=== PATIENT | female | born 1985 | race Caucasian/White ===

== ENCOUNTER → 2019-10-02 | Outpatient (CLI) | payer OTHER | LOC: RAD 17:18 | PROVIDERS: ATTEND Nurse Practitioner | DX: M54.6 Pain in thoracic spine (principal) ==

== ENCOUNTER → 2020-08-05 | Outpatient (CLI) | payer OTHER, MEDICAID ==
--- NOTE | 2020-08-05 13:56 | Diagnostic Imaging Report ---
EXAMINATION: Right foot at 01:09 p.m. INDICATION: Stepped on nail. FINDINGS: Three views were obtained. There are no prior studies available for comparison. There is no fracture, dislocation, or acute bony abnormality evident. The lateral view fails to show any sign of a radiopaque foreign body in the soft tissues along the plantar aspect of the foot. The Lisfranc joint is well maintained. There is no sign of a calcaneal spur. IMPRESSION: 1. There is no evidence for an acute bony abnormality. 2. There is no sign of a radiopaque foreign body. Dictated by: Dictated on workstation # [id number]
== END ==
LOC: RAD FS 12:48
PROVIDERS: ATTEND Family Medicine
DX: M79.671 Pain in right foot (principal); W22.8XXA Striking against or struck by other objects, initial encounter
CPT/HCPCS: 73630

== ENCOUNTER → 2020-08-05 | Outpatient (CLI) | payer OTHER, MEDICAID ==
[2020-08-05 13:25] LABS: HEMATOCRIT 37 % (35-52); HEMOGLOBIN 12.8 G/DL (11.5-16.0); MEAN CORPUSCULAR HEMOGLOBIN 30 PG (25-34); MEAN CORPUSCULAR HGB CONC 34 G/DL (32-36); MEAN CORPUSCULAR VOLUME 88 FL (80-99); PLATELET COUNT 256 10^3/uL (130-400); WHITE BLOOD COUNT 7.8 10^3/uL (4.3-11.0)
[2020-08-05 13:26] LABS: BASOPHILS % (AUTO) 0 % (0-10); EOSINOPHILS # (AUTO) 0.2 10^3/uL (0.0-0.3); EOSINOPHILS % (AUTO) 2 % (0-10); LYMPHOCYTES # (AUTO) 1.8 X 10^3 (1.0-4.0); LYMPHOCYTES % (AUTO) 24 % (12-44); MEAN PLATELET VOLUME 9.5 FL (7.4-10.4); MONOCYTES # (AUTO) 0.4 X 10^3 (0.0-1.0); MONOCYTES % (AUTO) 5 % (0-12); NEUTROPHILS # (AUTO) 5.3 X 10^3 (1.8-7.8); NEUTROPHILS % (AUTO) 68 % (42-75)
== END ==
LOC: LAB FS 12:43
PROVIDERS: ATTEND Family Medicine
DX: Z34.90 Encounter for supervision of normal pregnancy, unspecified, unspecified trimester (principal)
CPT/HCPCS: 36415; 80055; 86703; 86762; 87088

== ENCOUNTER → 2020-10-18 | Outpatient (CLI) | payer OTHER, MEDICAID | LOC: LAB FS 15:20 | PROVIDERS: ATTEND Family Medicine | DX: Z53.9 Procedure and treatment not carried out, unspecified reason (principal) | CPT/HCPCS: 36415; 82950 ==

== ENCOUNTER → 2020-10-21 | Outpatient (CLI) | payer OTHER, MEDICAID ==
[2020-10-21 09:01] LABS: HEMOGLOBIN 12.7 G/DL (11.5-16.0); MEAN PLATELET VOLUME 9.3 FL (7.4-10.4); WHITE BLOOD COUNT 7.4 10^3/uL (4.3-11.0)
== END ==
LOC: LAB FS 08:25
PROVIDERS: ATTEND Family Medicine
DX: O99.810 Abnormal glucose complicating pregnancy (principal); Z3A.00 Weeks of gestation of pregnancy not specified
CPT/HCPCS: 36415; 82951; 82952; 85027

== ENCOUNTER 2022-03-04 18:05 | Day surgery (SDC) | payer MEDICAID, OTHER ==
[~2022-03-04] VITALS: Ht 170.2 cm; Wt 82.5 kg
[2022-03-04] VITALS (7 sets, daily range): BP systolic 91–102; BP diastolic 42–58
[2022-03-04] MEDS ORDERED: NS IV 1000 ML 1,000 ML IV SCH ×2 (18:15→21:30)
--- NOTE | 2022-03-04 18:17 | ED GU-Female ---
General Stated Complaint: VAG BLEEDING Source: patient History of Present Illness Date Seen by Provider: Mar 04, 2022 Time Seen by Provider: 18:09 Initial Comments PT ARRIVES VIA EMS CALLED AMBULANCE THEN STARTED DRIVING HERE AND MET THE AMBULANCE, WHO BROUGHT HER TO ER PT WITH LMP OF 12/13/21 PT BEGAN SPOTTING 8 DAYS AGO PT HAD AN ULTRASOUND 4 WEEKS AGO ( SEES OB IN [place], [place]) --NO HEARTBEAT, AND GESTATIONAL SAC OF ONLY 6 WEEKS IN SIZE, INSTEAD OF 8 WEEKS BY LMP. SAW HER DR IN [place] EARLIER THIS WEEK AND HAD ANOTHER ULTRASOUND AND IT WAS "INCONCLUSIVE" WAS ALL SHE WAS TOLD--DID NOT TELL HER SIZE OF GESTATIONAL SAC OR IF ONE WAS PRESENT. 20 MINUTES PRIOR TO ARRIVAL, SHE HAD A SUDDEN GUSH OF BLOOD AND IS NOW STARTING TO HAVE CRAMPING --"CONTRACTIONS" PER PT. HAS NOT BEEN HAVING PAIN PRIOR TO THAT. HAS USED 5 PADS THROUGHOUT THE DAY, BUT NOW HAS A LARGE TOWEL IN PLACE, WITH A LARGE AMOUNT OF BLOOD ON THE TOWEL WITH CLOTS. NO NAUSEA/VOMITING NO PROBLEMS URINATING OR PAIN / BURNING ON URINATION PT STATES LAST WEEKEND SHE HAD FEVER UP TO 101 ON Sunday08/26/22, SUNDAY, SUNDAY, BUT NO FEVER SINCE SUNDAY AND IS NOW SUNDAY BP 101/62, HR 72 BY EMS. PT IS G10, P8, AB 1--ALL , DID HAVE BLEEDING WITH LAST 2 PREGNANCIES. MISCARRIAGE DID NOT REQUIRE D&C--WAS ONLY ABOUT 6-8 WEEKS GESTATION AND DID NOT HAVE SIGNIFICANT BLEEDING OR PAIN. PT HAS A 14 MONTH OLD CHILD AT HOME, WAS UNTIL 4 WEEKS AGO. NO CONTROL PCP: DR. CARPENTER IN [place] Allergies and Home Medications Allergies Coded Allergies: codeine (Verified Allergy, Mild, NAUSEA, 03/04/22) Patient Home Medication List Home Medication List Reviewed: Yes Acetaminophen (Tylenol Extra Strength) 500 Mg Tablet, 1,000 MG PO Q8H PRN for PAIN-MODERATE (5-7) Prescribed by: Jayna Vallejo on 03/04/222238 Docusate Sodium (Colace) 100 Mg Capsule, 100 MG PO BID Prescribed by: Jayna Vallejo on 03/04/222237 Ibuprofen (Ibuprofen) 600 Mg Tablet, 600 MG PO Q6H Prescribed by: Jayna Vallejo on 03/04/222237 Ondansetron (Ondansetron Odt) 4 Mg Tab.rapdis, 4 MG PO Q6H PRN for NAUSEA/VOMITING-1ST LINE Prescribed by: Jayna Vallejo on 03/04/222237 Review of Systems Review of Systems Constitutional: see HPI Respiratory: no symptoms reported; No short of breath Cardiovascular: no symptoms reported; No chest pain Gastrointestinal: see HPI Genitourinary: see HPI Musculoskeletal: no symptoms reported; No back pain Skin: no symptoms reported Psychiatric/Neurological: No Symptoms Reported Endocrine: No Symptoms Reported Hematologic/Lymphatic: No Symptoms Reported Past Nzoxfkh-Vzrxdc-Nihwxr Hx Patient Social History Tobacco Use?: No Substance use?: No Alcohol Use?: No Past Medical History Surgeries: Yes Gallbladder Respiratory: No Cardiac: No Neurological: No : Yes Hx : 10 (ALL NORMAL VAGINAL DELIVERIES) Hx Para: 8 Hx Total # of Abortions (Sp): 2 (CURRENT PROBLEM IS SECOND MISCARRIAGE.) Reproductive Disorders: No Genitourinary: No Gastrointestinal: Yes (S/P CHOLECYSTECTOMY) Gall Bladder Disease Musculoskeletal: No Endocrine: No HEENT: No Cancer: No Psychosocial: No Integumentary: No Blood Disorders: No Physical Exam Vital Signs Vital Signs - First Documented 03/04/22 18:08 Temp 36.6 Pulse 69 Resp 20 B/P (MAP) 86/52 (63) Pulse Ox 100 O2 Delivery Room Air Capillary Refill : Height, Weight, BMI Height: '" Weight: lbs. oz. kg; BMI Method: General Appearance: WD/WN, other (LOOKS UNCOMFORTABLE) Cardiovascular: regular rate, rhythm, no murmur Respiratory: normal breath sounds Gastrointestinal: soft, tenderness (SUPRAPUBIC) Pelvic: other (ACTIVE BLEEDING WITH VERY LARGE CLOTS--PALM SIZED CLOTS--UNABLE TO VISUALIZE CERVIX DUE TO AMOUNT OF BLEEDING) Extremities: no pedal edema Neurologic/Psychiatric: no motor/sensory deficits, alert, oriented x 3 Skin: normal color, warm/dry Progress/Results/Core Measures Suspected Sepsis SIRS Temperature: Pulse: Respiratory Rate: Laboratory Tests 03/04/22 18:19: White Blood Count 9.0 03/04/22 20:18: White Blood Count 13.0H Blood Pressure / Mean: Laboratory Tests 03/04/22 18:19: Creatinine 0.62, INR Comment 1.3, Platelet Count 263 03/04/22 20:18: Platelet Count 218 Results/Orders Lab Results Laboratory Tests Test 03/04/22 18:19 03/04/22 20:18 Range/Units White Blood Count 9.0 13.0 H 4.3-11.0 10^3/uL Red Blood Count 4.35 3.67 L 3.80-5.11 10^6/uL Hemoglobin 13.0 11.1 L 11.5-16.0 g/dL Hematocrit 38 33 L 35-52 % Mean Corpuscular Volume 88 89 80-99 fL Mean Corpuscular Hemoglobin 30 30 25-34 pg Mean Corpuscular Hemoglobin Concent 34 34 32-36 g/dL Red Cell Distribution Width 12.5 12.6 10.0-14.5 % Platelet Count 263 218 130-400 10^3/uL Mean Platelet Volume 9.2 9.3 9.0-12.2 fL Immature Granulocyte % (Auto) 0 % Neutrophils (%) (Auto) 55 42-75 % Lymphocytes (%) (Auto) 38 12-44 % Monocytes (%) (Auto) 5 0-12 % Eosinophils (%) (Auto) 1 0-10 % Basophils (%) (Auto) 0 0-10 % Neutrophils # (Auto) 4.9 1.8-7.8 10^3/uL Lymphocytes # (Auto) 3.4 1.0-4.0 10^3/uL Monocytes # (Auto) 0.4 0.0-1.0 10^3/uL Eosinophils # (Auto) 0.1 0.0-0.3 10^3/uL Basophils # (Auto) 0.0 0.0-0.1 10^3/uL Immature Granulocyte # (Auto) 0.0 0.0-0.1 10^3/uL Prothrombin Time 16.8 H 12.2-14.7 SEC INR Comment 1.3 0.8-1.4 Activated Partial Thromboplast Time 34 24-35 SEC Sodium Level 138 135-145 MMOL/L Potassium Level 3.5 L 3.6-5.0 MMOL/L Chloride Level 105 98-107 MMOL/L Carbon Dioxide Level 19 L 21-32 MMOL/L Anion Gap 14 5-14 MMOL/L Blood Urea Nitrogen 9 7-18 MG/DL Creatinine 0.62 0.60-1.30 MG/DL Estimat Glomerular Filtration Rate 118 BUN/Creatinine Ratio 15 Glucose Level 100 70-105 MG/DL Calcium Level 9.1 8.5-10.1 MG/DL Human Chorionic Gonadotropin, Quant 2078 H <5 MIU/ML My Orders Orders - DENI MORRIS DO Ed Iv/Invasive Line Start (03/04/22 18:15) Monitor-Rhythm Ecg Trace Only (03/04/22 18:15) Us Ob Single Fetus<14 [id number] (03/04/22 18:15) Basic Metabolic Panel (03/04/22 18:15) Cbc With Automated Diff (03/04/22 18:15) Hcg,Quantitative (03/04/22 18:15) Protime With Inr (03/04/22 18:15) Partial Thromboplastin Time (03/04/22 18:15) Ed Iv/Invasive Line Start (03/04/22 18:15) Ns Iv 1000 Ml (Sodium Chloride 0.9%) (03/04/22 18:15) Cbc No Diff (03/04/22 20:17) Type And Screen (03/04/22 20:17) Ed Iv/Invasive Line Start (03/04/22 20:17) Lactated Ringers (Lr 1000 Ml Iv Solution (03/04/22 20:30) Fentanyl Inj (Sublimaze Injection) (03/04/22 20:43) Ondansetron Injection (Zofran Injectio (03/04/22 21:00) Ondansetron Injection (Zofran Injectio (03/04/22 20:55) Ed Iv/Invasive Line Start (03/04/22 21:18) Ns Iv 1000 Ml (Sodium Chloride 0.9%) (03/04/22 21:30) Red Cells Leukocytes Reduced (03/04/22 21:18) Medications Given in ED Current Medications Medications Dose Ordered Sig/Mono Route Start Time Stop Time Status Last Admin Dose Admin Lactated Ringer's 1,000 ml @ 0 mls/hr Q0M ONCE IV 03/04/22 20:30 03/04/22 20:31 DC 03/04/22 20:33 0 MLS/HR Ondansetron HCl 8 mg ONCE ONCE IVP 03/04/22 21:00 03/04/22 21:01 DC 03/04/22 20:59 8 MG Vital Signs/I&O 03/04/22 03/04/22 03/04/22 03/04/22 18:08 22:20 22:20 22:30 Temp 36.6 37.0 Pulse 69 Resp 20 20 18 B/P (MAP) 86/52 (63) 95/51 (66) 94/43 (60) Pulse Ox 100 100 100 O2 Delivery Room Air OxyMask OxyMask OxyMask O2 Flow Rate 6 6 6 03/04/22 03/04/22 03/04/22 03/04/22 22:35 22:40 22:46 22:49 Resp 18 B/P (MAP) 91/42 (58) Pulse Ox 100 O2 Delivery OxyMask OxyMask OxyMask OxyMask O2 Flow Rate 6 5 4 2 03/04/22 03/04/22 03/04/22 03/04/22 22:50 22:53 22:56 23:00 Resp 18 18 B/P (MAP) 92/49 (63) 96/47 (63) Pulse Ox 100 99 O2 Delivery OxyMask Room Air Room Air Room Air O2 Flow Rate 2 03/04/22 03/04/22 03/04/22 03/04/22 23:02 23:10 23:10 23:25 Temp 36.8 36.9 Pulse 79 Resp 20 18 B/P (MAP) 101/58 (72) 102/55 (71) Pulse Ox 99 100 O2 Delivery Room Air Room Air Room Air Capillary Refill : Progress Note : Progress Note GIVEN IV FLUIDS PT HAS REPEATEDLY DECLINED PAIN MEDICATION WILL REPEAT CBC IN 2 HOURS, AND MONITOR FOR BLEEDING BLOOD TYPE IS O+ 2019--BP IN UPPER 90'S AND FEELING A LITTLE LIGHTHEADED, HR IN 80'S. PT CURRENTLY PASSING A VERY LARGE CLOT--DINNER PLATE SIZE, AND C/O ALOT OF CRAMPING LIKE "CONTRACTIONS" CONTINUES TO DECLINE PAIN MEDICATION AT THIS TIME. GIVEN IV FLUIDS AND BP > 100 SYSTOLIC BLOOD TRANSFUSION ORDERED HGB DROPPED FROM 13 TO 11, WITH CONTINUED BLEEDING AND PASSING MASSIVE CLOTS. 2044--PT NOW AGREES TO PAIN MEDICATION--GIVEN FENTANYL--CAUSED NAUSEA, RESOLVED WITH ZOFRAN 2119--BP DOWN TO 83 SYSTOLIC--ADDITIONAL FLUIDS GIVEN WHILE WAITING TO RECEIVE BLOOD TRANSFUSION FROM LAB. Diagnostic Imaging Comments PELVIC ULTRASOUND--PER RADIOLOGIST REPORT AT 1932 Findings: The uterus measures 15.9 x 5.8 x 7.5 cm in size. There is an elongated anechoic area near the level of the lower uterine segment which may reflect fluid in the endocervical canal. There is no identified intrauterine solid mass. The right ovary measures 2.8 x 1.5 x 3.4 cm in size. The left ovary measures 2.7 x 1.4 x 2.4 cm in size. There is blood flow to both ovaries. There is no free pelvic fluid. Impression: 1. Probable abnormal fluid in the endocervical canal. 2. No identified intrauterine gestational sac with pole. 3. Unremarkable appearance of the ovaries. 4. No free pelvic fluid. Reviewed: Reviewed by Me Departure Communication (Admissions) 2047--SPOKE WITH DR. VALLEJO, INTERVENTIONAL PHYSIATRIST, WILL BE IN TO SEE PT. WILL BE TAKING PT TO OR FOR D&C. RESIDENT SERVICES COORDINATOR NOTIFIED AND IS NOW SPEAKING WITH DR. VALLEJO 2112--DR. VALLEJO HERE, CARE TURNED OVER TO HER, Impression Primary Impression: MISCARRIAGE IN FIRST TRIMESTER Additional Impressions: Incomplete Vaginal hemorrhage MILD HEMORRHAGIC SHOCK WITH ACUTE BLOOD LOSS Disposition: ADMITTED INPATIENT (TO SURGERY) Condition: Stable Admissions Decision to Admit Reason: Admit from ER (General) (TO SURGERY) Decision to Admit/Date: Mar 04, 2022 Time/Decision to Admit Time: 20:50 Departure-Patient Inst. Referrals: FAN CARPENTER MD (PCP/Family) Primary Care Physician Scripts Acetaminophen (Tylenol Extra Strength) 500 Mg Tablet 1000 MG PO Q8H PRN for PAIN-MODERATE (5-7), #20 TAB Prov: JAYNA VALLEJO MD 03/04/22 Ondansetron (Ondansetron Odt) 4 Mg Tab.rapdis 4 MG PO Q6H PRN for NAUSEA/VOMITING-1ST LINE, #20 TAB Prov: JAYNA VALLEJO MD 03/04/22 Ibuprofen (Ibuprofen) 600 Mg Tablet 600 MG PO Q6H for PAIN, #60 TAB 0 Refills Prov: JAYNA VALLEJO MD 03/04/22 Docusate Sodium (Colace) 100 Mg Capsule 100 MG PO BID, #60 CAP Prov: JAYNA VALLEJO MD 03/04/22 DENI MORRIS DO Mar 04, 2022 18:17
[2022-03-04 18:30] LABS: BASOPHILS % (AUTO) 0 % (0-10); EOSINOPHILS # (AUTO) 0.1 10^3/uL (0.0-0.3); EOSINOPHILS % (AUTO) 1 % (0-10); HEMATOCRIT 38 % (35-52); LYMPHOCYTES # (AUTO) 3.4 10^3/uL (1.0-4.0); LYMPHOCYTES % (AUTO) 38 % (12-44); MEAN CORPUSCULAR HEMOGLOBIN 30 pg (25-34); MEAN CORPUSCULAR HGB CONC 34 g/dL (32-36); MEAN CORPUSCULAR VOLUME 88 fL (80-99); MEAN PLATELET VOLUME 9.2 fL (9.0-12.2); MONOCYTES # (AUTO) 0.4 10^3/uL (0.0-1.0); MONOCYTES % (AUTO) 5 % (0-12); NEUTROPHILS # (AUTO) 4.9 10^3/uL (1.8-7.8); NEUTROPHILS % (AUTO) 55 % (42-75); PLATELET COUNT 263 10^3/uL (130-400)
[2022-03-04 18:38] LABS: POTASSIUM 3.5 MMOL/L (3.6-5.0)
[2022-03-04 18:39] LABS: CALCIUM 9.1 MG/DL (8.5-10.1)
[2022-03-04 18:42] LABS: INR 1.3 (0.8-1.4); PROTHROMBIN TIME PATIENT 16.8 SEC (12.2-14.7)
[2022-03-04 18:44] LABS: CREATININE SERUM 0.62 MG/DL (0.60-1.30)
--- NOTE | 2022-03-04 19:29 | Diagnostic Imaging Report ---
Procedure: US OB single fetus <14 wks. Technique: Multiple real-time grayscale images were obtained over the gravid uterus in various projections. Date: March 04, 2022. Indication: 36-year-old female, vaginal bleeding with clots. Comparison: None. Findings: The uterus measures 15.9 x 5.8 x 7.5 cm in size. There is an elongated anechoic area near the level of the lower uterine segment which may reflect fluid in the endocervical canal. There is no identified intrauterine solid mass. The right ovary measures 2.8 x 1.5 x 3.4 cm in size. The left ovary measures 2.7 x 1.4 x 2.4 cm in size. There is blood flow to both ovaries. There is no free pelvic fluid. Impression: 1. Probable abnormal fluid in the endocervical canal. 2. No identified intrauterine gestational sac with pole. 3. Unremarkable appearance of the ovaries. 4. No free pelvic fluid. Dictated by: Dictated on workstation # [id number]
[2022-03-04 20:29] LABS: HEMATOCRIT 33 % (35-52); HEMOGLOBIN 11.1 g/dL (11.5-16.0); MEAN CORPUSCULAR HEMOGLOBIN 30 pg (25-34); MEAN CORPUSCULAR HGB CONC 34 g/dL (32-36); MEAN CORPUSCULAR VOLUME 89 fL (80-99); MEAN PLATELET VOLUME 9.3 fL (9.0-12.2); PLATELET COUNT 218 10^3/uL (130-400)
[2022-03-04] MEDS ORDERED: LACTATED RINGERS 1,000 ML IV ONE (20:30)
[2022-03-04] MEDS ORDERED: fentaNYL INJ 100 MCG/2 ML AMP IVP STA (20:43)
[2022-03-04] MEDS ORDERED: ONDANSETRON 4 MG/2 ML (SDV) Z0FRAN ONE (20:55)
[2022-03-04] MEDS ORDERED: ONDANSETRON 4 MG/2 ML (SDV) Z0FRAN IVP ONE (21:00)
[2022-03-04] MEDS ORDERED: LACTATED RINGERS 1,000 ML IV PRN (21:30)
[2022-03-04] MEDS ORDERED: LIDOCAINE PF 2% 5 ML (XYLOCAINE) VIAL ONE (21:32)
[2022-03-04] MEDS ORDERED: proPOfol 200 MG/20 ML (DIPRIVAN) VIAL IV ONE (21:32)
[2022-03-04] MEDS ORDERED: fentaNYL INJ 100 MCG/2 ML AMP ONE (21:32)
[2022-03-04] MEDS ORDERED: MIDAZOLAM 2 MG/2 ML (VERSED) VIAL ONE (21:33)
[2022-03-04] MEDS ORDERED: PHENYLEPHRINE 100 MCG/ML 10 ML (ANESTHESIA) SYR ONE (21:51)
[2022-03-04] MEDS ORDERED: ceFAZolin INJECTION 1,000 MG ONE (21:59)
[2022-03-04] MEDS ORDERED: SUCCINYLCHOLINE INJ 100 MG/5 ML SYR/VIAL ONE (22:04)
[2022-03-04] MEDS ORDERED: ROCURONIUM 10 MG/ML 5 ML SYRINGE IV ONE (22:04)
[2022-03-04] MEDS ORDERED: SEVOFLURANE (ULTANE) 15 ML INHAL SOLN ONE (22:15)
--- NOTE | 2022-03-04 22:32 | Anesthesia-General Post-Op ---
General Patient Condition Mental Status/LOC: Same as Preop Cardiovascular: Satisfactory Nausea/Vomiting: Absent Respiratory: Satisfactory Pain: Controlled Complications: Absent Post Op Complications Complications None Follow Up Care/Instructions Patient Instructions None needed. Anesthesia/Patient Condition Patient Condition Patient is doing well, no complaints, stable vital signs, no apparent adverse anesthesia problems. No complications reported per nursing. IVETH LAW CRNA Mar 04, 2022 22:32
[2022-03-04] MEDS ORDERED: IBUP-1773 PO (22:38)
[2022-03-04] MEDS ORDERED: DOCU-143 PO (22:38)
[2022-03-04] MEDS ORDERED: ONDA4TAB11 PO (22:38)
[2022-03-04] MEDS ORDERED: ACET-2267 PO (22:39)
[2022-03-04] MEDS ORDERED: ONDANSETRON 4 MG/2 ML (SDV) Z0FRAN IVP PRN ×2 (22:45)
[2022-03-04] MEDS ORDERED: fentaNYL INJ 100 MCG/2 ML AMP IVP ONE (22:45)
--- NOTE | 2022-03-04 22:50 | History & Physical-OB/GYN ---
History of Present Illness History of Present Illness Reason for visit/HPI CC: Vaginal Bleeding S: Destiny Beavers is a 36yo at 11w4d by LMP of 12/13/2021 who presents to the ED with complains of significant vaginal bleeding this afternoon with associated lightheadeness and dizziness. She states that she has had vaginal bleeding since Sunday that was similar to a period, but increased in intensity today. During our interview, she stated that she had her first trimester US 4 weeks ago in [place], [place] (of note, she resides in [place], [place]) and was informed that a gestational sac was seen with a concerning HR of 70. She was to have a repeat US to assess for viability, but opted to forgo this follow-up US in a timely manner until she started bleeding on Sunday. On Sunday, she went to the ED with her in [place], [place]. There an US was completed and she was told that the findings were inconclusive and that she should follow-up with her OBGYN in 48 hours for a beta HCG and US. She once again opted to forgo this option until her symptoms presented today. Per ED attending, the patient has passed large golf ball sized clots in the ED with associated symptoms. 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 She has had foot surgery and lap reggie in the past. O: Vital Signs 03/04/22 18:08 Temp 36.6 Pulse 69 Resp 20 B/P (MAP) 86/52 (63) Pulse Ox 100 O2 Delivery Room Air Labs: Laboratory Tests Test 03/04/22 18:19 03/04/22 20:18 Range/Units White Blood Count 9.0 13.0 H 4.3-11.0 10^3/uL Red Blood Count 4.35 3.67 L 3.80-5.11 10^6/uL Hemoglobin 13.0 11.1 L 11.5-16.0 g/dL Hematocrit 38 33 L 35-52 % Mean Corpuscular Volume 88 89 80-99 fL Mean Corpuscular Hemoglobin 30 30 25-34 pg Mean Corpuscular Hemoglobin Concent 34 34 32-36 g/dL Red Cell Distribution Width 12.5 12.6 10.0-14.5 % Platelet Count 263 218 130-400 10^3/uL Mean Platelet Volume 9.2 9.3 9.0-12.2 fL Immature Granulocyte % (Auto) 0 % Neutrophils (%) (Auto) 55 42-75 % Lymphocytes (%) (Auto) 38 12-44 % Monocytes (%) (Auto) 5 0-12 % Eosinophils (%) (Auto) 1 0-10 % Basophils (%) (Auto) 0 0-10 % Neutrophils # (Auto) 4.9 1.8-7.8 10^3/uL Lymphocytes # (Auto) 3.4 1.0-4.0 10^3/uL Monocytes # (Auto) 0.4 0.0-1.0 10^3/uL Eosinophils # (Auto) 0.1 0.0-0.3 10^3/uL Basophils # (Auto) 0.0 0.0-0.1 10^3/uL Immature Granulocyte # (Auto) 0.0 0.0-0.1 10^3/uL Prothrombin Time 16.8 H 12.2-14.7 SEC INR Comment 1.3 0.8-1.4 Activated Partial Thromboplast Time 34 24-35 SEC Sodium Level 138 135-145 MMOL/L Potassium Level 3.5 L 3.6-5.0 MMOL/L Chloride Level 105 98-107 MMOL/L Carbon Dioxide Level 19 L 21-32 MMOL/L Anion Gap 14 5-14 MMOL/L Blood Urea Nitrogen 9 7-18 MG/DL Creatinine 0.62 0.60-1.30 MG/DL Estimat Glomerular Filtration Rate 118 BUN/Creatinine Ratio 15 Glucose Level 100 70-105 MG/DL Calcium Level 9.1 8.5-10.1 MG/DL Human Chorionic Gonadotropin, Quant 2078 H <5 MIU/ML Date of Admission 03/04/2022 Date Seen by a Provider: Mar 04, 2022 Time Seen by a Provider: 09:00 I consulted on this patient on 03/04/22 22:39 Attending Physician Jayna Vallejo MD Admitting Physician Gaby Mckee MD Consult Allergies and Home Medications Allergies Coded Allergies: codeine (Verified Allergy, Mild, NAUSEA, 03/04/22) Patient Home Medication List Home Medication List Reviewed: Yes Acetaminophen (Tylenol Extra Strength) 500 Mg Tablet, 1,000 MG PO Q8H PRN for PAIN-MODERATE (5-7) Prescribed by: Jayna Vallejo on 03/04/222238 Docusate Sodium (Colace) 100 Mg Capsule, 100 MG PO BID Prescribed by: Jayna Vallejo on 03/04/222237 Ibuprofen (Ibuprofen) 600 Mg Tablet, 600 MG PO Q6H Prescribed by: Jayna Vallejo on 03/04/222237 Ondansetron (Ondansetron Odt) 4 Mg Tab.rapdis, 4 MG PO Q6H PRN for NAUSEA/VOMITING-1ST LINE Prescribed by: Jayna Vallejo on 03/04/222237 Past Tlueila-Hwclyh-Diozjg Hx Patient Social History Marrital Status: Number of Children: 8 Number of living children: 8 Have you traveled recently?: No Alcohol Use?: No Pt feels they are or have been: No Surgeries Gallbladder Reproductive System : Yes Hx : 10 Hx Para: 8018 Hx Total # of Abortions (Spona: 1 Hx Reproductive Disorders: No Sexually Transmitted Disease: No HIV/AIDS: No Female Reproductive Disorders: Denies Review of Systems Constitutional: dizziness, malaise, weakness EENTM: see HPI Respiratory: no symptoms reported Cardiovascular: no symptoms reported Gastrointestinal: abdominal pain Genitourinary: no symptoms reported : Yes Expected Date of Delivery: Sep 19, 2022 LMP: Dec 13, 2021 Physical Exam Physical Exam Vital Signs Vital Signs Date Time Temp Pulse Resp B/P (MAP) Pulse Ox O2 Delivery O2 Flow Rate FiO2 03/04/22 18:08 36.6 69 20 86/52 (63) 100 Room Air Capillary Refill : Less Than 3 Seconds Labs Laboratory Tests 03/04/22 18:19: White Blood Count 9.0, Red Blood Count 4.35, Hemoglobin 13.0, Hematocrit 38, Mean Corpuscular Volume 88, Mean Corpuscular Hemoglobin 30, Mean Corpuscular Hemoglobin Concent 34, Red Cell Distribution Width 12.5, Platelet Count 263, Mean Platelet Volume 9.2, Immature Granulocyte % (Auto) 0, Neutrophils (%) (Auto) 55, Lymphocytes (%) (Auto) 38, Monocytes (%) (Auto) 5, Eosinophils (%) (Auto) 1, Basophils (%) (Auto) 0, Neutrophils # (Auto) 4.9, Lymphocytes # (Auto) 3.4, Monocytes # (Auto) 0.4, Eosinophils # (Auto) 0.1, Basophils # (Auto) 0.0, Immature Granulocyte # (Auto) 0.0, Prothrombin Time 16.8H, INR Comment 1.3, Activated Partial Thromboplast Time 34, Sodium Level 138, Potassium Level 3.5L, Chloride Level 105, Carbon Dioxide Level 19L, Anion Gap 14, Blood Urea Nitrogen 9, Creatinine 0.62, Estimat Glomerular Filtration Rate 118, BUN/Creatinine Ratio 15, Glucose Level 100, Calcium Level 9.1, Human Chorionic Gonadotropin, Quant 03/04/22 20:18: White Blood Count 13.0H, Red Blood Count 3.67L, Hemoglobin 11.1L, Hematocrit 33L , Mean Corpuscular Volume 89, Mean Corpuscular Hemoglobin 30, Mean Corpuscular Hemoglobin Concent 34, Red Cell Distribution Width 12.6, Platelet Count 218, Mean Platelet Volume 9.3 General Appearance: Mild Distress, Obese Respiratory: Chest Non Tender, Lungs Clear, Normal Breath Sounds, No Accessory Muscle Use, No Respiratory Distress Cardiovascular: Regular Rate, Rhythm Abdominal: normal bowel sounds Vagina: Bleeding Pelvic Exam: vaginal bleeding Assessment/Plan Assessment and Plan A/P: Destiny Beavers is a 36yo at 11w4d by LMP who presents with significant vaginal bleeding concerning for an incomplete . She requires surgical management with Dilation and Curettage. # Incomplete : Surgical management with D&C is indicated. The details of the procedure were reviewed with the patient and appropriate consents were signed. All questions were answered. # Heme: preop hgb 13.0 --> 11.1. Patient is T&C for 2 units given patient history. Will plan to administer rectal cytotec 1000mcg following the case. # Pain Management: Anesthesia consulted with plans for general anesthesia. # Diet: NPO at this time. Patient is unsure when her last meal took place. # DVT ppx: SCDs in place. # Dispo: Anticipate surgical management. Problems: (1) Incomplete Admission Diagnosis Incomplete Admission Status: Observation Reason for Inpatient Admission: Postoperative JAYNA VALLEJO MD Mar 04, 2022 22:50
--- NOTE | 2022-03-04 23:01 | Operative Report ---
Operative Report Date of Procedure/Surgery Mar 04, 2022 Surgeon (s) JAYNA VALLEJO MD [employer] (s): N/A Post-Operative Diagnosis Incomplete Procedure Performed Dilation and Curettage Description of Procedure Anesthesia Type: General Estimated blood loss (mL): 25 Specimen(s) collected/removed Products of conception Packing: None Description of the Procedure Informed consent was obtained. Patient was taken back to the OR where General anesthesia was performed and found to be adequate. Received 1g of Ancef for in fection prophylaxis. The patient was placed in the dorsal lithotomy position with Phillip stirrups. She was then prepped and draped in the usual sterile fashion. A large clot of products of conception was removed from the vagina and sent with pathology. Sterile speculum was then inserted into vagina and a normal appearing cervix was visualized. Single-tooth tenaculum was applied to the anterior lip of the cervix. Uterus then sounded to 9 cm. Cervix did not require sequential dilation. A 10 mm suction curette was then used to remove the products of conception. 3 passes were made. Follow-up with an 8 mm suction curette was used with 2 passes. A sharp curette was then inserted and a sharp gritty texture was noted in all 4 quadrants. The sharp curette was removed as well as then single-toothed tenaculum from the anterior lip of the cervix. Hemostasis was noted at the tenaculum site. Sterile speculum was removed. This concluded the procedure. Pt tolerated the procedure well and was taken to the recovery room in stable condition. Counts were correct x 2. 1000mcg of cytotec was placed rectally for hemorrhage prophylaxis. Blood type: O+ Dr. Jayna Vallejo was scrubbed and present for the entire procedure. Findings of the Procedure Products of conception collected consistent with incomplete . Allergies and Home Medications Allergies Coded Allergies: codeine (Verified Allergy, Mild, NAUSEA, 03/04/22) Patient Home Medication List Home Medication List Reviewed: Yes Acetaminophen (Tylenol Extra Strength) 500 Mg Tablet, 1,000 MG PO Q8H PRN for PAIN-MODERATE (5-7) Prescribed by: Jayna Vallejo on 03/04/222238 Docusate Sodium (Colace) 100 Mg Capsule, 100 MG PO BID Prescribed by: Jayna Vallejo on 03/04/222237 Ibuprofen (Ibuprofen) 600 Mg Tablet, 600 MG PO Q6H Prescribed by: Jayna Vallejo on 03/04/222237 Ondansetron (Ondansetron Odt) 4 Mg Tab.rapdis, 4 MG PO Q6H PRN for NAUSEA/VOMITING-1ST LINE Prescribed by: Jayna Vallejo on 03/04/222237 JAYNA VALLEJO MD Mar 04, 2022 23:00
[2022-03-04] MEDS: D5 LR IV SOLUTION 1,000 ML IV SCH (23:10)
[2022-03-04] MEDS ORDERED: CHLORASEPTIC LOZENGE MM PRN (23:15)
[2022-03-05] MEDS ORDERED: KETOROLAC 15 MG/ML VIAL IV SCH
[2022-03-05] MEDS: D5 LR IV SOLUTION 1,000 ML IV SCH (04:15)
[2022-03-05 04:16] VITALS: BP 98/57
[2022-03-05 04:39] LABS: BASOPHILS % (AUTO) 0 % (0-10); EOSINOPHILS % (AUTO) 0 % (0-10); HEMATOCRIT 28 % (35-52); HEMOGLOBIN 9.5 g/dL (11.5-16.0); LYMPHOCYTES # (AUTO) 0.9 10^3/uL (1.0-4.0); LYMPHOCYTES % (AUTO) 11 % (12-44); MEAN CORPUSCULAR HEMOGLOBIN 30 pg (25-34); MEAN CORPUSCULAR HGB CONC 34 g/dL (32-36); MEAN CORPUSCULAR VOLUME 89 fL (80-99); MEAN PLATELET VOLUME 9.5 fL (9.0-12.2); MONOCYTES # (AUTO) 0.1 10^3/uL (0.0-1.0); MONOCYTES % (AUTO) 1 % (0-12); NEUTROPHILS # (AUTO) 6.9 10^3/uL (1.8-7.8); NEUTROPHILS % (AUTO) 87 % (42-75); PLATELET COUNT 217 10^3/uL (130-400); WHITE BLOOD COUNT 7.9 10^3/uL (4.3-11.0)
[2022-03-05] MEDS ORDERED: ACETAMINOPHEN 500 MG TAB (TYLENOL) PO SCH (06:00)
[2022-03-05 08:28] VITALS: BP 101/56
[2022-03-05] MEDS ORDERED: DOCUSATE SODIUM 100 MG (COLACE) CAP PO SCH (09:00)
[2022-03-05] MEDS ORDERED: FERR325T18 PO (09:09)
--- NOTE | 2022-03-05 09:25 | Progress Note ---
Standard Progress Note Progress Notes/Assess & Plan Date Seen by a Provider: Mar 05, 2022 Time Seen by a Provider: 09:20 Progress/Assessment & Plan S: Patient was seen at the bedside. She is doing well with no complaints. She requests for discharge immediately so that she may go home to her children. She is ambulating, tolerating a regular diet, ambulating, voiding with no issues, and passing gas. She denies fever, chills, nausea or vomiting. O: Vital Signs 03/04/22 03/05/22 22:50 08:28 Temp 36.8 Pulse 76 Resp 18 B/P (MAP) 101/56 (71) Pulse Ox 100 O2 Delivery Room Air O2 Flow Rate 2 Laboratory Tests Test 03/04/22 18:19 03/04/22 20:18 03/05/22 04:15 Range/Units White Blood Count 9.0 13.0 H 7.9 4.3-11.0 10^3/uL Red Blood Count 4.35 3.67 L 3.15 L 3.80-5.11 10^6/uL Hemoglobin 13.0 11.1 L 9.5 L 11.5-16.0 g/dL Hematocrit 38 33 L 28 L 35-52 % Mean Corpuscular Volume 88 89 89 80-99 fL Mean Corpuscular Hemoglobin 30 30 30 25-34 pg Mean Corpuscular Hemoglobin Concent 34 34 34 32-36 g/dL Red Cell Distribution Width 12.5 12.6 12.6 10.0-14.5 % Platelet Count 263 218 217 130-400 10^3/uL Mean Platelet Volume 9.2 9.3 9.5 9.0-12.2 fL Immature Granulocyte % (Auto) 0 0 % Neutrophils (%) (Auto) 55 87 H 42-75 % Lymphocytes (%) (Auto) 38 11 L 12-44 % Monocytes (%) (Auto) 5 1 0-12 % Eosinophils (%) (Auto) 1 0 0-10 % Basophils (%) (Auto) 0 0 0-10 % Neutrophils # (Auto) 4.9 6.9 1.8-7.8 10^3/uL Lymphocytes # (Auto) 3.4 0.9 L 1.0-4.0 10^3/uL Monocytes # (Auto) 0.4 0.1 0.0-1.0 10^3/uL Eosinophils # (Auto) 0.1 0.0 0.0-0.3 10^3/uL Basophils # (Auto) 0.0 0.0 0.0-0.1 10^3/uL Immature Granulocyte # (Auto) 0.0 0.0 0.0-0.1 10^3/uL Prothrombin Time 16.8 H 12.2-14.7 SEC INR Comment 1.3 0.8-1.4 Activated Partial Thromboplast Time 34 24-35 SEC Sodium Level 138 135-145 MMOL/L Potassium Level 3.5 L 3.6-5.0 MMOL/L Chloride Level 105 98-107 MMOL/L Carbon Dioxide Level 19 L 21-32 MMOL/L Anion Gap 14 5-14 MMOL/L Blood Urea Nitrogen 9 7-18 MG/DL Creatinine 0.62 0.60-1.30 MG/DL Estimat Glomerular Filtration Rate 118 BUN/Creatinine Ratio 15 Glucose Level 100 70-105 MG/DL Calcium Level 9.1 8.5-10.1 MG/DL Human Chorionic Gonadotropin, Quant 2078 H <5 MIU/ML A/P: Destiny Beavers is a 36yo POD#1 s/p D&C due to incomplete . # Postop: Pathology is pending. Routine postop care. # Pain management: Toradol 15mg q6hrs for 3 doses. Ibuprofen 600mg q6hrs PRN and tylenol 1000mg q8hrs PRN. # Heme: preop hgb 13.0 --> 11.1 --> 9.5. FeSO4 and colace were sent to her pharmacy. # Diet: Regular diet. # DVT ppx: SCDs in place. Encourage ambulating. # Dispo: Discharge home with plans for postoperative follow-up in 1-2 weeks with our office. Final Diagnosis Incomplete Diagnosis/Problems Diagnosis/Problems (1) Incomplete JAYNA WEINSTEIN MD Mar 05, 2022 09:25
[2022-03-05] MEDS ORDERED: IBUPROFEN 600 MG (MOTRIN) TAB PO SCH (18:00)
== END 2022-03-05 09:35 | disposition home or self-care (01) ==
LOC: EDUNIT# 18:05 → ER 18:07 → SDC 21:01 → WS 23:10 → SDC 03-05 09:35
PROVIDERS: ATTEND Obstetrics & Gynecology
DX: O03.4 Incomplete spontaneous abortion without complication (principal); D62 Acute posthemorrhagic anemia
CPT/HCPCS: 36415; 76801; 80048; 84702; 85025; 85027; 85610; 85730; 86850; 86900; 86901; 86920; 93041; 94664

== ENCOUNTER → 2022-09-11 | Outpatient (CLI) | payer MEDICAID ==
[~2022-09-11] MED LIST: ACET-2267 PO; DOCU-143 PO; FERR325T18 PO; IBUP-1773 PO; ONDA4TAB11 PO
--- NOTE | 2022-09-11 16:06 | Diagnostic Imaging Report ---
INDICATION: Supervision of normal . Anatomy scan. TECHNIQUE: Multiple real-time grayscale images were obtained over the gravid uterus. COMPARISON: None FINDINGS: A single live intrauterine gestation is visualized in transverse orientation with head maternal left. The heart tones measure 147 bpm. The placenta is anterior and not low lying. The DORI is normal and measures 18.9 cm. The cervix measures 5.2 cm in length without evidence of funneling. The stomach, bladder, brain, kidneys, three-vessel cord, cord insertion, outflow tracts, and four-chamber heart are visualized and have a normal appearance. No dedicated imaging was performed of the spine. No adnexal mass is seen. Biometrical measurements are as follows: Biparietal 5.03 cm, age 21 weeks 2 days. Head circumference 18.69 cm, age 21 weeks 1 days. Abdominal circumference 16.72 cm, age 21 weeks 6 days. Femur length 3.69 cm, age 21 weeks 6 days. Sonographic estimate age: 21 weeks 4 days. Sonographic estimated date of delivery: 01/18/2023. Estimated Weight: 440 gm (+/- 64 gm). LMP percentile: 79%. heart rate: 147 beats per minute. number: 1 of 1. IMPRESSION: 1. Single live intrauterine gestation in transverse orientation measuring 21 weeks 4 days with an estimated due date of 01/18/2023. These are within range with the clinical dates. Recommend continued follow-up, as indicated. 2. No dedicated images of the spine were included on this exam. Otherwise, the anatomy is visualized and is unremarkable. Recommend continued follow-up as indicated. Dictated by: Dictated on workstation # [id number]
== END ==
LOC: RAD 12:34
PROVIDERS: ATTEND Obstetrics & Gynecology
DX: Z34.02 Encounter for supervision of normal first pregnancy, second trimester (principal); Z3A.21 21 weeks gestation of pregnancy
CPT/HCPCS: 76805

== ENCOUNTER → 2022-10-20 | Outpatient (CLI) | payer MEDICAID ==
--- NOTE | 2022-10-20 17:23 | Diagnostic Imaging Report ---
PROCEDURE: US Thyroid. TECHNIQUE: Multiple real-time grayscale images were obtained of the thyroid in various projections. INDICATION: Nontoxic thyroid nodule. COMPARISON: None. FINDINGS: Both thyroid lobes demonstrate smooth and homogenous background echotexture. Color flow Doppler demonstrates normal and symmetric vascularity bilaterally. The right lobe measures 5.1 cm in length, 1.9 cm AP, and 2.0 cm transverse. The left lobe measures 5.6 cm in length, 1.7 cm AP, and 1.9 cm transverse. The isthmus measures 0.4 cm. A colloid cyst is seen within the inferior pole of the left lobe of the thyroid measuring 0.3 cm. IMPRESSION: 1. Unremarkable thyroid sonogram. Benign colloid cyst is seen in the inferior pole of the left lobe of the thyroid measuring 0.3 cm. Dictated by: Dictated on workstation # [id number]
== END ==
LOC: RAD 11:07
PROVIDERS: ATTEND Obstetrics & Gynecology
DX: E04.1 Nontoxic single thyroid nodule (principal)
CPT/HCPCS: 76536

== ENCOUNTER 2022-10-26 17:04 | Emergency (ER) | payer MEDICAID ==
[~2022-10-26] VITALS: Ht 170 cm; Wt 95.0 kg
[2022-10-26 17:37] LABS: BASOPHILS % (AUTO) 0 % (0-10); EOSINOPHILS # (AUTO) 0.1 10^3/uL (0.0-0.3); EOSINOPHILS % (AUTO) 1 % (0-10); HEMATOCRIT 35 % (35-52); HEMOGLOBIN 11.9 g/dL (11.5-16.0); LYMPHOCYTES # (AUTO) 1.6 10^3/uL (1.0-4.0); LYMPHOCYTES % (AUTO) 19 % (12-44); MEAN CORPUSCULAR HEMOGLOBIN 30 pg (25-34); MEAN CORPUSCULAR HGB CONC 34 g/dL (32-36); MEAN CORPUSCULAR VOLUME 89 fL (80-99); MEAN PLATELET VOLUME 9.4 fL (9.0-12.2); MONOCYTES # (AUTO) 0.5 10^3/uL (0.0-1.0); MONOCYTES % (AUTO) 6 % (0-12); NEUTROPHILS # (AUTO) 6.1 10^3/uL (1.8-7.8); NEUTROPHILS % (AUTO) 73 % (42-75); PLATELET COUNT 245 10^3/uL (130-400); WHITE BLOOD COUNT 8.3 10^3/uL (4.3-11.0)
[2022-10-26 17:47] LABS: INR 0.9 (0.8-1.4)
--- NOTE | 2022-10-26 17:47 | Diagnostic Imaging Report ---
INDICATION: Chest pain. FINDINGS: The heart size, mediastinal configuration, and pulmonary vascularity are within normal limits. There is no pleural effusion, pneumothorax, or pneumonia. The osseous structures are unremarkable. IMPRESSION: No acute cardiopulmonary abnormality. Dictated by: Dictated on workstation # [id number]
[2022-10-26 17:52] LABS: ALBUMIN 3.3 GM/DL (3.2-4.5); POTASSIUM 3.6 MMOL/L (3.6-5.0)
[2022-10-26 17:54] LABS: TOTAL PROTEIN 6.5 GM/DL (6.4-8.2)
[2022-10-26 17:56] LABS: BILIRUBIN,TOTAL 0.2 MG/DL (0.1-1.0)
[2022-10-26 17:58] LABS: CREATININE SERUM 0.67 MG/DL (0.60-1.30)
[2022-10-26 18:01] LABS: MAGNESIUM 1.9 MG/DL (1.6-2.4)
--- NOTE | 2022-10-26 18:54 | ED Chest Pain ---
General Chief Complaint: Cardiac/General Problems Stated Complaint: CHEST/BACK PAIN 7 MONTHS , PARACARDIAL CYS Nursing Triage Note: PT STATES SHE IS 28 WEEKS GESTATION AND HAS BEEN HAVING LEFT SIDED CHEST PAIN AND PALPITATIONS SINCE SUNDAY. HAS A HX OF A PERICARDIAL CYST. WAS SEEN AT [facility] WHO TOLD HER TO CALL HER OB. HER OB DR TOLD HER TO GO TO THE OB FLOOR AND THE OB FLOOR TOLD HER TO COME TO THE ER. History of Present Illness Date Seen by Provider: Oct 26, 2022 Time Seen by Provider: 17:15 Initial Comments Patient is a 37-year-old female who presents to the emergency department for evaluation of left-sided chest pain that has been present since Sunday. Patient is currently at 28 weeks gestation per her report. Denies any shortness of air, diaphoresis, increased dependent edema. States she has a history of pericarditis and during her work-up was reportedly told she has a pericardial cyst. She has not seen a lead designer in several years since that work-up was performed. Denies any abdominal pain/cramping or vaginal discharge. Allergies and Home Medications Allergies Coded Allergies: codeine (Verified Allergy, Mild, NAUSEA, 03/04/22) Patient Home Medication List Home Medication List Reviewed: Yes Acetaminophen (Tylenol Extra Strength) 500 Mg Tablet, 1,000 MG PO Q8H PRN for PAIN-MODERATE (5-7) Prescribed by: Robe Vallejo on 03/04/222238 Docusate Sodium (Colace) 100 Mg Capsule, 100 MG PO BID Prescribed by: Robe Vallejo on 03/04/222237 Ferrous Sulfate (Ferrous Sulfate) 325 Mg (65 Mg Iron) Tablet, 325 MG PO DAILY Prescribed by: Robe Vallejo on 03/05/22 0909 Ibuprofen (Ibuprofen) 600 Mg Tablet, 600 MG PO Q6H Prescribed by: Robe Vallejo on 03/04/222237 Ondansetron (Ondansetron Odt) 4 Mg Tab.rapdis, 4 MG PO Q6H PRN for NAUSEA/VOMITING-1ST LINE Prescribed by: Robe Vallejo on 03/04/222237 Review of Systems Review of Systems Constitutional: no symptoms reported EENTM: No Symptoms Reported Respiratory: See HPI, Cough Cardiovascular: No Symptoms Reported Gastrointestinal: No Symptoms Reported Genitourinary: No Symptoms Reported Musculoskeletal: no symptoms reported Skin: no symptoms reported Psychiatric/Neurological: No Symptoms Reported Endocrine: No Symptoms Reported Hematologic/Lymphatic: No Symptoms Reported Past [id number]-[id number] Hx Patient Social History Tobacco Use?: No Substance use?: No Alcohol Use?: No Past Medical History Surgeries: Yes Gallbladder Respiratory: No Cardiac: No Neurological: No Reproductive Disorders: No Female Reproductive Disorders: Denies Sexually Transmitted Disease: No HIV/AIDS: No Genitourinary: No Gastrointestinal: Yes (S/P CHOLECYSTECTOMY) Gall Bladder Disease Musculoskeletal: No Endocrine: No HEENT: No Cancer: No Psychosocial: No Integumentary: No Blood Disorders: No Physical Exam Vital Signs Vital Signs - First Documented 10/26/22 17:12 Temp 36.3 Pulse 74 Resp 16 B/P (MAP) 137/81 (99) Pulse Ox 100 O2 Delivery Room Air Capillary Refill : Less Than 3 Seconds Height, Weight, BMI Height: '" Weight: lbs. oz. 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 Skin: Normal Color, Warm/Dry Progress/Results/Core Measures Results/Orders Lab Results Laboratory Tests Test 10/26/22 17:30 Range/Units White Blood Count 8.3 4.3-11.0 10^3/uL Red Blood Count 3.97 3.80-5.11 10^6/uL Hemoglobin 11.9 11.5-16.0 g/dL Hematocrit 35 35-52 % Mean Corpuscular Volume 89 80-99 fL Mean Corpuscular Hemoglobin 30 25-34 pg Mean Corpuscular Hemoglobin Concent 34 32-36 g/dL Red Cell Distribution Width 12.9 10.0-14.5 % Platelet Count 245 130-400 10^3/uL Mean Platelet Volume 9.4 9.0-12.2 fL Immature Granulocyte % (Auto) 0 % Neutrophils (%) (Auto) 73 42-75 % Lymphocytes (%) (Auto) 19 12-44 % Monocytes (%) (Auto) 6 0-12 % Eosinophils (%) (Auto) 1 0-10 % Basophils (%) (Auto) 0 0-10 % Neutrophils # (Auto) 6.1 1.8-7.8 10^3/uL Lymphocytes # (Auto) 1.6 1.0-4.0 10^3/uL Monocytes # (Auto) 0.5 0.0-1.0 10^3/uL Eosinophils # (Auto) 0.1 0.0-0.3 10^3/uL Basophils # (Auto) 0.0 0.0-0.1 10^3/uL Immature Granulocyte # (Auto) 0.0 0.0-0.1 10^3/uL Prothrombin Time 13.0 12.2-14.7 SEC INR Comment 0.9 0.8-1.4 Activated Partial Thromboplast Time 28 24-35 SEC Sodium Level 137 135-145 MMOL/L Potassium Level 3.6 3.6-5.0 MMOL/L Chloride Level 106 98-107 MMOL/L Carbon Dioxide Level 22 21-32 MMOL/L Anion Gap 9 5-14 MMOL/L Blood Urea Nitrogen 9 7-18 MG/DL Creatinine 0.67 0.60-1.30 MG/DL Estimat Glomerular Filtration Rate 115 BUN/Creatinine Ratio 13 Glucose Level 96 70-105 MG/DL Calcium Level 9.0 8.5-10.1 MG/DL Corrected Calcium 9.6 8.5-10.1 MG/DL Magnesium Level 1.9 1.6-2.4 MG/DL Total Bilirubin 0.2 0.1-1.0 MG/DL Aspartate Amino Transf (AST/SGOT) 12 5-34 U/L Alanine Aminotransferase (ALT/SGPT) 12 0-55 U/L Alkaline Phosphatase 74 40-136 U/L Myoglobin 13.3 10.0-92.0 NG/ML Troponin I < 0.028 <0.028 NG/ML Total Protein 6.5 6.4-8.2 GM/DL Albumin 3.3 3.2-4.5 GM/DL My Orders Orders - ALEXANDRA BOWLING PIT TANNER Cbc With Automated Diff (10/26/22 17:19) Magnesium (10/26/22 17:19) Chest 1 View, Ap/Pa Only (10/26/22 17:19) Comprehensive Metabolic Panel (10/26/22 17:19) Myoglobin Serum (10/26/22 17:19) Protime With Inr (10/26/22 17:19) Partial Thromboplastin Time (10/26/22 17:19) O2 (10/26/22 17:19) Monitor-Rhythm Ecg Trace Only (10/26/22 17:19) Ed Iv/Invasive Line Start (10/26/22 17:19) Troponin I [place] (10/26/22 17:19) Vital Signs/I&O 10/26/22 10/26/22 17:12 19:04 Temp 36.3 Pulse 74 88 Resp 16 B/P (MAP) 137/81 (99) 105/66 Pulse Ox 100 98 O2 Delivery Room Air Room Air Blood Pressure Mean: 99 Progress Progress Note : Progress Note Patient is nontoxic and well-hydrated on exam. No adventitious lung sounds or increased work of breathing noted. Vital signs are reassuring. Laboratory evaluation unremarkable. Specifically there is no elevation in troponin. Chest x-ray is acutely negative. EKG without acute ischemic change or arrhythmia. No indication for further diagnostic studies at this time. Low suspicion for ACS at this time. Discussed supportive care anticipatory guidance. Follow-up with PCP or BI SPECIALIST. Return precautions for urgent symptomology discussed. Patient verbalized understanding. EKG : EKG Time: 17:25 Rate: 76 Rhythm: Normal Sinus ECG Impression: Nonspecific Changes Departure Impression Primary Impression: Atypical chest pain Disposition: HOME, SELF-CARE Condition: Stable Departure-Patient Inst. Decision time for Depature: 18:50 Referrals: FAN CARPENTER MD (PCP/Family) Primary Care Physician Patient Instructions: Chest Pain, Adult ED Add. Discharge Instructions: Follow-up with cardiology and Dr. Ace. All discharge instructions reviewed with patient and/or family. Voiced understanding. ALEXANDRA BOWLING PIT TANNER Oct 26, 2022 18:54
[2022-10-26 19:04] VITALS: BP 105/66
== END 2022-10-26 19:05 | disposition home or self-care (01) ==
LOC: EDUNIT# 17:04 → ER 17:06
DX: O99.891 Other specified diseases and conditions complicating pregnancy (principal); R07.89 Other chest pain; O09.93 Supervision of high risk pregnancy, unspecified, third trimester; Z3A.28 28 weeks gestation of pregnancy; Z28.310 Unvaccinated for COVID-19
CPT/HCPCS: 36415; 71045; 80053; 83735; 83874; 84484; 85025; 85610; 85730; 93005; 93041